=== PATIENT | female | born 1950 | race Caucasian/White ===

== ENCOUNTER 2021-08-31 16:55 | Observation (INO) | payer MEDICARE, BC ==
[2021-08-31] MEDS ORDERED: Aspirin Chewable 81 MG TAB ONE (18:09)
[2021-08-31 18:10] LABS: #Eosinphils 0.1 10x3/uL (0.0-0.5); #Monocytes 0.7 10x3/uL (0.0-1.1); #Neutrophils 5.1 10x3/uL (1.5-8.4); %Basophils 0.3 % (0.0-2.0); %Eosinophils 1.1 % (0.0-6.0); %Lymphocytes 17.6 % (18.0-47.0); %Neutrophils 70.6 % (40.0-75.0); Hemoglobin 11.8 g/dL (12.0-15.5); Mean Corpuscular HGB CONC 33.1 g/dL (32.0-36.0); Mean Corpuscular Hemoglobin 30.6 pg (27.0-33.0); Mean Corpuscular Volume 92.5 fl (81.6-98.3); Mean Platelet Volume 10.5 fl (7.4-10.4); Platelet Count 208 10x3/uL (150-450); RBC Distribution Width 12.3 % (11.5-14.5); Red Blood Cell (RBC) Count 3.86 10x6/uL (3.90-5.03); White Blood Cell (WBC) Count 7.2 10x3/uL (3.5-10.5)
[2021-08-31 18:25] LABS: ALT (SGPT) 9 U/L (8-55); AST (SGOT) 18 U/L (5-34); Albumin 4.2 g/dL (3.4-4.8); Alkaline Phosphatase 53 U/L (40-110); Anion Gap 12 mmol/L (10-20); BUN (Urea Nitrogen) 17 mg/dL (9.8-20.1); Bilirubin, Total 0.5 mg/dL (0.2-1.2); Calc. Creatinine Clearance 0 mL/min (70-130); Calcium 9.5 mg/dL (7.8-10.44); Carbon Dioxide 27 mmol/L (23-31); Chloride 103 mmol/L (98-107); Globulin 2.4 g/dL (2.4-3.5); Glucose 110 mg/dL (83-110); Magnesium 1.5 mg/dL (1.6-2.6); Potassium 4.3 mmol/L (3.5-5.1); Protein, Total 6.6 g/dL (5.8-8.1); Sodium 138 mmol/L (136-145)
[2021-08-31 18:48] LABS: SARS-CoV-2 NAA Rapid Test Not Detected (NotDetected)
[2021-08-31] MEDS ORDERED: Magnesium 2 GM/50 ML BAG (IN WATER) ONE (18:59)
[2021-08-31] MEDS ORDERED: Nitroglycerin 0.4 MG TAB (25 Tab Bottle) SL PRN (21:25)
[2021-08-31] MEDS ORDERED: Calcium Carbonate 500 MG ChewTAB PO PRN (21:25)
[2021-08-31] MEDS ORDERED: Zolpidem Tartrate 5 MG TAB PO PRN (21:25)
[2021-08-31] MEDS ORDERED: Acetaminophen 325 MG TAB PO PRN (21:25)
[2021-08-31 22:57] VITALS: BMI 26.6
[2021-08-31] MEDS ORDERED: Nitroglycerin 2% Ointment 1 INCH/1 GM Packet TOP SCH (23:00)
[2021-08-31 23:57] LABS: Troponin I Less than 0.010 ng/mL (< 0.028)
[2021-09-01] MEDS ORDERED: FLU VACC QS2021-22(65YR UP)/PF 240 MCG/0.7 ML SYRINGE IM ONE (00:30)
[2021-09-01 05:19] LABS: Anion Gap 12 mmol/L (10-20); BUN (Urea Nitrogen) 13 mg/dL (9.8-20.1); Calc. Creatinine Clearance 74 mL/min (70-130); Carbon Dioxide 23 mmol/L (23-31); Cardiac Risk 4.4 (Less than 4.5); Chloride 106 mmol/L (98-107); Cholesterol 181 mg/dl (< 200 Desired); Glucose 101 mg/dL (83-110); HDL Cholesterol 41 mg/dL (>60 Neg Risk); LDL Cholesterol, Calculated 118 mg/dL; Potassium 3.6 mmol/L (3.5-5.1); Sodium 137 mmol/L (136-145); Triglycerides 108 mg/dL (Less than 150)
[2021-09-01 05:29] LABS: Troponin I Less than 0.010 ng/mL (< 0.028)
[2021-09-01] MEDS ORDERED: Carvedilol 6.25 MG TAB PO SCH (08:00)
[2021-09-01] MEDS ORDERED: Losartan 25 MG TAB PO SCH (09:00)
[2021-09-01] MEDS ORDERED: Enoxaparin Sodium 40 MG/0.4 ML SYRINGE SC SCH (09:00)
[2021-09-01] MEDS ORDERED: Ubidecarenone 50 MG CAP PO SCH (09:00)
[2021-09-01] MEDS ORDERED: Aspirin Chewable 81 MG TAB PO SCH (09:00)
[2021-09-01] MEDS ORDERED: Ezetimibe 10 MG TAB PO SCH (09:00)
[2021-09-01 11:41] VITALS: BP 111/55; TEMP 97.6
[2021-09-01] MEDS ORDERED: Atorvastatin Calcium 20 MG TAB PO SCH (21:00)
[2021-09-01] MEDS ORDERED: Cholecalciferol 1,000 UNITS (25 MCG) TAB PO SCH (21:00)
== END 2021-09-01 15:36 | disposition home or self-care (01) ==
LOC: CSHERS 16:55 → CSHTELE 22:51
PROVIDERS: ADMIT Student in an Organized Health Care Education/Training Program; ATTEND Family Medicine
DX: R07.89 Other chest pain (principal); I44.7 Left bundle-branch block, unspecified; I16.0 Hypertensive urgency; E78.5 Hyperlipidemia, unspecified; I12.9 Hypertensive chronic kidney disease with stage 1 through stage 4 chronic kidney disease, or unspecified chronic kidney disease; N18.30 Chronic kidney disease, stage 3 unspecified; N17.9 Acute kidney failure, unspecified; K21.9 Gastro-esophageal reflux disease without esophagitis; E83.42 Hypomagnesemia; D64.9 Anemia, unspecified; Z20.822 Contact with and (suspected) exposure to COVID-19; Z79.899 Other long term (current) drug therapy; Z79.82 Long term (current) use of aspirin; Z88.8 Allergy status to other drugs, medicaments and biological substances
CPT/HCPCS: 71045; 80048; 80053; 80061; 83735 ×2; 83880; 84484 ×3; 85025; 93005; 93306; U0002; 36415; 96365; 96366; 96372; G0378; J1650; J3475